=== PATIENT | male | born 1975 | race Asian ===

== ENCOUNTER 2018-03-29 18:40 | Outpatient (CLI) | payer SELFPAY | END 2018-03-29 18:41 | disposition critical access hospital (66) | LOC: EMS 18:40 | PROVIDERS: ATTEND Surgery | DX: R55 Syncope and collapse (principal); R73.09 Other abnormal glucose | CPT/HCPCS: A0425; A0429 ==

== ENCOUNTER 2018-03-29 18:56 | Emergency (ER) | payer SELFPAY ==
--- NOTE | 2018-03-29 19:36 | ED Physician Documentation ---
History of Present Illness - Stated complaint Stated Complaint: SYNCOPE - Chief complaint Chief Complaint: General - History obtained from History obtained from: Patient - History of Present Illness Timing: Today (42-year-old gentleman with no significant past medical history, does not drink alcohol. He has a poor diet and does not eat except at night, during the day he drinks a lot of Mountain Dew and coffee. He was feeling dizzy and then passed out. He had a 10 second premonition. He passed out without incident or injury. He was evaluated by paramedics and his blood sugar was 40 and he was administered oral glucose and now feels okay. There is no associated chest pain or trouble breathing.) Review of Systems Constitutional: denies: Fever, Chills Nose: denies: Rhinorrhea / runny nose, Congestion Cardiac: denies: Chest pain / pressure, Palpitations Respiratory: denies: Dyspnea, Cough GI: denies: Abdominal Pain, Nausea, Vomiting PD PAST MEDICAL HISTORY - Past Medical History Past Medical History: No - Present Medications Home Medications: Ambulatory Orders Medication Instructions Recorded Confirmed No Known Home Medications [No 03/29/18 03/29/18 Known Home Medications] - Allergies Allergies/Adverse Reactions: Allergies Allergy/AdvReac Type Severity Reaction Status Date / Time No Known Drug Allergies Allergy Verified 03/29/18 19:02 - Social History Does the pt smoke?: Yes Smoking Status: Current every day smoker PD ED PE NORMAL - Vitals Vital signs reviewed: Yes - General General: Alert and oriented X 3, No acute distress - HEENT HEENT: PERRL, EOMI - Neck Neck: Supple, no meningeal sign, No bony TTP - Cardiac Cardiac: RRR, No murmur - Respiratory Respiratory: No respiratory distress, Clear bilaterally - Abdomen Abdomen: Normal bowel sounds, Soft, Non tender - Back Back: No CVA TTP, No spinal TTP - Derm Derm: Normal color, Warm and dry - Extremities Extremities: No edema, No calf tenderness / cord - Neuro Neuro: Alert and oriented X 3, Normal speech Eye Opening: Spontaneous Motor: Obeys Commands Verbal: Oriented GCS Score: 15 - Psych Psych: Normal mood, Normal affect Results - Vitals Vitals: Vital Signs - 24 hr 03/29/18 03/29/18 03/29/18 19:02 19:47 20:14 Temperature 36.7 C 37.1 C Heart Rate 63 73 Respiratory 16 21 Rate Blood Pressure 140/92 H 126/94 H O2 Saturation 100 99 03/29/18 20:54 Temperature Heart Rate 72 Respiratory 18 Rate Blood Pressure 129/89 H O2 Saturation 98 Oxygen O2 Source Room air - EKG (time done) 1947 Rate: Rate (enter#) (70) Rhythm: NSR [place]: Normal Intervals: Normal [place] QRS: Normal Ischemia: Normal ST segments, ST elevation c/w repol Computer interpretation: Agree with computer 2111 Rate: Rate (enter#) (66) Rhythm: NSR [place]: Normal Intervals: Normal [place] QRS: Normal Ischemia: ST elevation c/w repol Compare to prior EKG: Unchanged from prior EKG (no change from #1) - Labs Labs: Laboratory Tests 03/29/18 03/29/18 03/29/18 19:44 19:44 19:44 WBC 10.4 RBC 5.06 Hgb 14.9 Hct 45.2 MCV 89.2 MCH 29.5 MCHC 33.0 RDW 14.4 Plt Count 280 MPV 7.1 L Neut # 6.0 Lymph # 3.3 [place] # 0.8 Eos # 0.2 Baso # 0.1 Absolute Nucleated RBC 0.00 Nucleated RBC % 0.0 Sodium 135 Potassium 3.6 Chloride 100 L Carbon Dioxide 26 Anion Gap 9.0 BUN 19 Creatinine 1.0 Estimated GFR (MDRD) 82 L Glucose 118 H Calcium 9.4 Total Bilirubin 0.9 AST 20 ALT 18 Alkaline Phosphatase 54 Total Protein 8.0 Albumin 4.7 Globulin 3.3 Albumin/Globulin Ratio 1.4 Lipase 21 L TSH 4.70 Cortisol 23.2 PD MEDICAL DECISION MAKING - ED course ED course: 42-year-old gentleman with a syncopal episode with hypoglycemia, likely poor diet by history. Remained stable throughout ED workup. Departure - Departure Disposition: 01 Home, Self Care Clinical Impression: Hypoglycemia Syncope Qualifiers: Syncope type: unspecified Qualified Code(s): R55 - Syncope and collapse Condition: Good Record reviewed to determine appropriate education?: Yes Instructions: ED Blood Sugar Low Non Diabetic Comments: He should eat breakfast every day. Stop drinking so much coffee and Mountain Dew. Call your doctor to arrange a follow-up appointment, make the next available appointment. In the interim, return anytime if worse or if new symptoms develop.
[2018-03-29 19:48] LABS: BASOPHILS # (AUTO) 0.1 10^3/uL (0.0-0.1); BASOPHILS % (AUTO) 0.9 %; EOSINOPHILS # (AUTO) 0.2 10^3/uL (0.0-0.7); EOSINOPHILS % (AUTO) 2.4 %; HGB - HEMOGLOBIN 14.9 g/dL (14.0-18.0); LYMPHOCYTES # (AUTO) 3.3 10^3/uL (1.5-3.5); LYMPHOCYTES % (AUTO) 31.8 %; MEAN CORPUSCULAR HEMOGLOBIN 29.5 pg (27.0-31.0); MEAN CORPUSCULAR VOLUME 89.2 fL (80.0-94.0); MEAN PLATELET VOLUME 7.1 fL (7.4-11.4); MONOCYTES # (AUTO) 0.8 10^3/uL (0.0-1.0); MONOCYTES % (AUTO) 7.3 %; NEUTROPHILS % (AUTO) 57.6 %; PLT - PLATELET COUNT 280 10^3/uL (130-450); RED BLOOD COUNT 5.06 10^6/uL (4.70-6.10); RED CELL DISTRIBUTION WIDTH 14.4 % (12.0-15.0); WHITE BLOOD COUNT 10.4 x10^3/uL (4.8-10.8)
[2018-03-29 20:01] LABS: ALBUMIN 4.7 g/dL (3.2-5.5); ALBUMIN/GLOBULIN RATIO 1.4 (1.0-2.2); BILIRUBIN,TOTAL 0.9 mg/dL (0.2-1.0); CALCIUM 9.4 mg/dL (8.5-10.3)
[2018-03-29 20:38] LABS: CORTISOL 23.2 ug/dL
[2018-03-29 20:42] LABS: THYROID STIMULATING HORMONE 4.7 uIU/mL (0.34-5.60)
[2018-03-29 20:55] VITALS: BP 129/89
== END 2018-03-29 21:25 | disposition home or self-care (01) ==
LOC: EDUNIT# → ED 18:56
DX: E16.2 Hypoglycemia, unspecified (principal); R55 Syncope and collapse; F17.200 Nicotine dependence, unspecified, uncomplicated
CPT/HCPCS: 36415; 80053; 82533; 83690; 84443; 85025; 93005; 99283; 99284